=== PATIENT | male | born 1955 | race American Indian/Alaskan Native ===

== ENCOUNTER 2017-12-23 10:20 | Emergency (ER) | payer BC ==
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
[2017-12-23] MEDS ORDERED: MOTRIN PO ONE (11:46)
[2017-12-23] MEDS ORDERED: FLEXERIL PO ONE (11:46)
[2017-12-23 12:28] VITALS: BP 137/89
--- NOTE | 2017-12-23 13:34 | XRay Report ---
LUMBOSACRAL SPINE, 3 VIEWS: History: Back pain Findings: The vertebral bodies, disk spaces and posterior elements are intact. No compression deformity or malalignment. The SI joints are symmetric and unremarkable. Moderate degenerative disc disease and facet arthropathy are identified at all levels. Impression: Lumbar spondylosis. No evidence for acute injury to the lumbar spine.
== END 2017-12-23 12:28 | disposition home or self-care (01) ==
LOC: ED 10:20
DX: M54.5 Low back pain (principal); I10 Essential (primary) hypertension; V89.2XXA Person injured in unspecified motor-vehicle accident, traffic, initial encounter; Y93.89 Activity, other specified; Y92.89 Other specified places as the place of occurrence of the external cause; Y99.8 Other external cause status
CPT/HCPCS: 72100; 99283

== ENCOUNTER 2022-03-25 13:26 | Emergency (ER) | payer BC | END 2022-03-25 17:36 | disposition left against medical advice (07) | LOC: ED 13:26 | DX: R06.02 Shortness of breath (principal); Z53.21 Procedure and treatment not carried out due to patient leaving prior to being seen by health care provider ==